=== PATIENT | male | born 1930 | race Caucasian/White ===

== ENCOUNTER 2018-04-09 14:03 | Emergency (ER) | payer MEDICARE, OTHER ==
--- NOTE | 2018-04-09 14:37 | EDM.PDOC ---
ED HPI GENERAL MEDICAL PROBLEM - General Chief Complaint: Head Injury Stated Complaint: FALL-RIGHT SIDE OF HEAD INJURY Time Seen by Provider: 04/09/18 14:31 Source of Information: Reports: Patient, Family (son and daughter in law. ) History Limitations: Reports: Altered Mental Status (Experiencing quite significant auditory and visual hallucinations.) - History of Present Illness INITIAL COMMENTS - FREE TEXT/NARRATIVE: 88-year-old male sent to the ED from the [place] [facility]. He is exhibiting auditory and visual hallucinations today apparently had a few days ago that he did the similar thing although he is much worse today. Patient has known organic brain disease but mild by history. Daughter and son-in-law are here to provide most of the history. He is very high functioning up until he fell 10 days ago and hit the right side of his head on the deck of his lawnmower. Therefore is concern of potential closed head injury with a subdural. Is been no nausea or vomiting. His balances never been the best but perhaps a little worse since the fall. He has not fallen again. Appetite is quite good. He does not drink much water however. His family believes that he is keeping up pretty well with the diet not losing weight. Onset: Gradual Onset Date: 03/30/18 (Fell 10 days ago and struck the right side of his head on the lawnmower deck. Symptoms seemed to gradually worsened since that time.) Duration: Day(s):, Intermittent, Waxing/Waning Location: Reports: Generalized (Auditory and visual hallucinations.) Quality: Reports: Other Severity: Moderate (As above) Improves with: Reports: None Worsens with: Reports: None Context: Denies: Activity, Exercise, Lifting, Sick Contact, Trauma, Other Associated Symptoms: Reports: Confusion, Other (Auditory and visual hallucinations.). 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 (see below) (None.) - Related Data Allergies Allergy/AdvReac Type Severity Reaction Status Date / Time aspirin Allergy Other Verified 04/09/18 14:26 simvastatin Allergy Other Verified 04/09/18 14:26 Home Meds: Home Meds Acetaminophen 500 mg PO QID PRN 04/09/18 [History] Cholecalciferol (Vitamin D3) [Vitamin D3] 1,000 unit PO DAILY 04/09/18 [History] Alvarom/Geovanni/ Bt-Org Peel/Gr T [Apple Cider Vinegar Plus TB] 1 tab PO DAILY [History] Cinnamon [Cinnamon Oil] 0 unit PO DAILY 04/09/18 [History] Famotidine 20 mg PO BEDTIME 04/09/18 [History] HCTZ/Triamterene [Dyazide 25-37.5 MG] 0.5 tab PO DAILY 04/09/18 [History] Hydrocortisone [Hydrocortisone 2.5% Crm] 1 applic TOP BID 04/09/18 [History] Lisinopril 10 mg PO BID 04/09/18 [History] Withee-3/DHA/Epa/Fish Oil [Fish Oil 1,000 mg Softgel] 1,000 mg PO DAILY 04/09/18 [History] Psyllium [Metamucil SF] 1 tsp PO BID 04/09/18 [History] Rivastigmine Tartrate [Rivastigmine] 1.5 mg PO BID #28 capsule 04/09/18 [Rx] Vit A & D3 In Cod Liver Oil [Cod Liver Oil Softgel] 1 cap PO DAILY 04/09/18 [ History] Social & Family History - Living Situation & Occupation Living situation: Reports: Occupation: Retired ED ROS GENERAL - Review of Systems Review Of Systems: See Below Constitutional: Denies: Fever, Chills, Malaise, Weakness, Decreased Appetite, Weight Loss HEENT: Reports: Glasses, Hearing Loss (Wears hearing aids in both ears.) Respiratory: Reports: No Symptoms Cardiovascular: Reports: No Symptoms Endocrine: Reports: No Symptoms GI/Abdominal: Reports: No Symptoms : Reports: Frequency, Other (BPH.) Musculoskeletal: Reports: Joint Pain (Right knee. Has rotator cuff disease in both shoulders.) Skin: Reports: No Symptoms Neurological: Reports: Confusion, Other (Exhibiting auditory and visual hallucinations). Denies: Headache ( according to family members. Patient is aware that the things that he see a real but they aren't real to him at the time and are quite scary.), Numbness, Paresthesia, Seizure, Syncope, Tingling, Tremors, Trouble Speaking, Difficulty Walking, Weakness, Change in Speech Psychiatric: Reports: No Symptoms, Hallucinations (Both visual and auditory hallucinations), Other Hematologic/Lymphatic: Reports: No Symptoms Immunologic: Reports: No Symptoms ED EXAM, HEAD INJURY - Physical Exam Exam: See Below Exam Limited By: No Limitations General Appearance: Alert, WD/WN, No Apparent Distress Head: Atraumatic, Normocephalic. No: Scalp Abrasions, Scalp Ecchymosis, Scalp Hematoma, Scalp Tenderness, Active Bleeding, Elliott's Sign, Facial Abrasions, Facial Ecchymosis, Facial Lacerations Nexus Criteria: No: Posterior, Midline Cervical Tenderness, Evidence of Intoxication, Altered Level of Consciousness, Focal Neurological Deficit, Painful Distraction Injuries Eyes: Bilateral Eye: PERRL Nose: Normal Inspection Throat/Mouth: Normal Inspection, Normal Lips, Normal Oropharynx, Normal Voice. No: Dental Trauma Neck: Non-Tender, Normal Alignment, Normal Inspection, Other (Limited extension of the cervical spine but otherwise full range of motion.) Respiratory: No Respiratory Distress, Lungs Clear, Normal Breath Sounds, No Accessory Muscle Use, Chest Non-Tender Cardiovascular: Normal Peripheral Pulses, Regular Rate, Rhythm, No Edema, No Gallop, No Rub GI/Abdominal Exam: Normal Bowel Sounds, Soft, Non-Tender, No Organomegaly, No Abnormal Bruit, No Mass, Pelvis Stable Back Exam: Normal Inspection, Full Range of Motion. No: CVA Tenderness (L), CVA Tenderness (R) Extremities: No Pedal Edema, Pedal Edema (1-2+ pitting edema bilaterally.), Other Neurologic: No Motor/Sensory Deficits, Alert, Oriented x 3 Skin: Normal Color, Warm/Dry - [place] Coma Score Best Eye Response (Ronda): (4) Open Spontaneously Best Verbal Response (Ronda): (5) Oriented Best Motor Response ([place]): (6) Obeys Commands Ronda Total: 15 EKG INTERPRETATION EKG Date: 04/09/18 Time: 14:42 Rhythm: Other (Sinus arrhythmia with a rate of 56-75/m.) Rate (Beats/Min): 66 (Occasional PVCs.) [place]: Normal P-Wave: Present QRS: Normal ST-T: Other (Diffuse early repolarization pattern) QT: Prolonged (QT mildly prolonged.) EKG Interpretation Comments: Borderline ECG Course - Vital Signs Last Recorded V/S: Last Vital Signs Temp 36.3 C 04/09/18 14:13 Pulse 64 04/09/18 14:13 Resp 18 04/09/18 14:13 BP 189/68 H 04/09/18 14:13 Pulse Ox 98 04/09/18 14:13 - Orders/Labs/Meds Orders: Active Orders 24 hr Category Date Time Status EKG Documentation Completion [RC] STAT Care 04/09/18 14:32 Active Head wo Cont [CT] Stat Exams 04/09/18 14:35 Taken OSMOLALITY,SERUM [CHEM] Stat Lab 04/09/18 15:05 Results SEDIMENTATION RATE AUTO [HEME] Stat Lab 04/09/18 15:05 Received TSH [CHEM] Stat Lab 04/09/18 15:05 Results Labs: Laboratory Tests 04/09/18 04/09/18 04/09/18 Range/Units 15:05 15:05 15:05 WBC 9.99 H (4.23-9.07) K/mm3 RBC 5.02 (4.63-6.08) M/mm3 Hgb 15.4 (13.7-17.5) gm/L Hct 46.6 (40.1-51.0) % MCV 92.8 H (79.0-92.2) fl MCH 30.7 (25.7-32.2) pg MCHC 33.0 (32.2-35.5) g/dl RDW Std Deviation 42.9 (35.1-43.9) fL Plt Count 295 (163-337) K/mm3 MPV 9.6 (9.4-12.3) fl Neutrophils % (Manual) 58 (40-60) % Band Neutrophils % 0 (0-10) % Lymphocytes % (Manual) 33 (20-40) % Atypical Lymphs % 0 % Monocytes % (Manual) 9 (2-10) % Eosinophils % (Manual) 0 L (0.8-7.0) % Basophils % (Manual) 0 L (0.2-1.2) Platelet Estimate Adequate RBC Morph Comment Normal Sodium 142 (136-145) mEq/L Potassium 4.1 (3.5-5.1) mEq/L Chloride 105 (98-107) mEq/L Carbon Dioxide 29 (21-32) mEq/L Anion Gap 12.1 (5-15) BUN 11 (7-18) mg/dL Creatinine 1.0 (0.7-1.3) mg/dL Est Cr Clr Drug Dosing 54.97 mL/min Estimated GFR (MDRD) > 60 (>60) mL/min BUN/Creatinine Ratio 11.0 L (14-18) Glucose 100 (83-115) mg/dL Calcium 9.9 (8.5-10.1) mg/dL Magnesium 1.9 (1.8-2.4) mg/dl Total Bilirubin 0.5 (0.2-1.0) mg/dL AST 19 (15-37) U/L ALT 19 (16-63) U/L Alkaline Phosphatase 97 (46-116) U/L C-Reactive Protein 0.2 (<1.0) mg/dL NT-Pro-B Natriuret Pep 150 (0-450) pg/mL Total Protein 7.4 (6.4-8.2) g/dl Albumin 3.4 (3.4-5.0) g/dl Globulin 4.0 gm/dL Albumin/Globulin Ratio 0.9 L (1-2) TSH 3rd Generation (0.358-3.74) uIU/mL 04/09/18 Range/Units 15:05 WBC (4.23-9.07) K/mm3 RBC (4.63-6.08) M/mm3 Hgb (13.7-17.5) gm/L Hct (40.1-51.0) % MCV (79.0-92.2) fl MCH (25.7-32.2) pg MCHC (32.2-35.5) g/dl RDW Std Deviation (35.1-43.9) fL Plt Count (163-337) K/mm3 MPV (9.4-12.3) fl Neutrophils % (Manual) (40-60) % Band Neutrophils % (0-10) % Lymphocytes % (Manual) (20-40) % Atypical Lymphs % % Monocytes % (Manual) (2-10) % Eosinophils % (Manual) (0.8-7.0) % Basophils % (Manual) (0.2-1.2) Platelet Estimate RBC Morph Comment Sodium (136-145) mEq/L Potassium (3.5-5.1) mEq/L Chloride (98-107) mEq/L Carbon Dioxide (21-32) mEq/L Anion Gap (5-15) BUN (7-18) mg/dL Creatinine (0.7-1.3) mg/dL Est Cr Clr Drug Dosing mL/min Estimated GFR (MDRD) (>60) mL/min BUN/Creatinine Ratio (14-18) Glucose (83-115) mg/dL Calcium (8.5-10.1) mg/dL Magnesium (1.8-2.4) mg/dl Total Bilirubin (0.2-1.0) mg/dL AST (15-37) U/L ALT (16-63) U/L Alkaline Phosphatase (46-116) U/L C-Reactive Protein (<1.0) mg/dL NT-Pro-B Natriuret Pep (0-450) pg/mL Total Protein (6.4-8.2) g/dl Albumin (3.4-5.0) g/dl Globulin gm/dL Albumin/Globulin Ratio (1-2) TSH 3rd Generation 3.102 (0.358-3.74) uIU/mL - Radiology Interpretation Free Text/Narrative:: 88-year-old male presents to the ED for evaluation of auditory and visual hallucinations that seem to started within the last 10 days. This was predated by a fall with striking of the right side of his head on the deck of his lawnmower 10 days ago. He has no other signs or symptoms of neurological disease. He had some signs of early dementia prior to his fall and no past history of auditory or visual hallucinations up until this injury. No changes in his medications recently. Examination reveals normal heart and lungs. He does not appear to be ill. No fever. Plan CT head to be done to rule out a subdural hematoma. Routine labs to be collected including a TSH. - Re-Assessments/Exams Free Text/Narrative Re-Assessment/Exam: 04/09/18 15:29 CT of the brain reveals age-appropriate changes with diffuse small vessel ischemic changes in both basal ganglia. There are also scattered areas of hypoattenuation of the super tentorial white matter most likely secondary to microvascular ischemic changes. No recurrent or infarcts are evident. No subdural or intracerebral mass effect identified. No fractures of the skull identified. I have reviewed his medication list and there is no medications that should interfere significantly with any brain function. Particular he is on no antidepressants or antipsychotics. No anticholinergics. Family does not believe he takes any [id number] medications. 04/09/18 16:04 Labs are back. White count is normal at 9.99. Differential is 58 % neutrophils with no bands. Hemoglobin is 15.4 and hematocrit of 46.6. Is normal at 295,000. Sodium is 142 with potassium of 4.1. Chloride is 105 bicarbonate 29. Anion gap is normal at 12.1. BUN is 11 with a creatinine of 1.0. GFR is greater than 60. Glucose is 100. Calcium is 9.9 with a magnesium of 1.9. Bilirubin is normal at 0.5 remainder the liver function studies are normal. C-reactive protein is less than 0.2 BNP is 150. TSH is normal at 3.102. Entered into a discussion with his family members so that they are aware that there are no metabolic abnormalities to account for his acute change in cognitive function. I've asked them to go back to the [place] [facility] and have them organize a neurological consult. In the meantime we will start him on rivastigmine 1.5 mg bid and an effort to try and bring his visual hallucinations and delusional behavior under control. This dosage can be increased every 2 weeks depending on tolerability up to a total of 6 mg twice daily. This be better followed and managed by neurological services. 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 behavioral disturbance Dementia, presenile with delusions Qualifiers: Dementia behavioral disturbance: without behavioral disturbance Qualified Code( s): F03.90 - Unspecified dementia without behavioral disturbance - Discharge Information *PRESCRIPTION DRUG MONITORING PROGRAM REVIEWED*: Not Applicable *COPY OF PRESCRIPTION DRUG MONITORING REPORT IN PATIENT DEO: Not Applicable Prescriptions: Rivastigmine Tartrate [Rivastigmine] 1.5 mg PO BID #28 capsule Referrals: Sonja Corrales DO [Primary Care Provider] - Forms: ED Department Discharge Additional Instructions: Evaluation in the emergency him today in regards to development of significant delusional behaviors in terms of false fixed beliefs. This is associated with visual hallucinations and perhaps auditory hallucinations reportedly seeing things that aren't there including people etc. A complete metabolic workup was carried out in the emergency department today and also a head CT scan as of recent fall 10 days ago injuring the right side of your head. CT scan reveals age-appropriate degenerative changes and evidence of an aging brain. Suggest starting a medication called Rivastigmine 1.5 mg twice daily with food for the next 2 weeks and see if the hallucinations and delusional behavior does not go away. If not the medication could be increased after 2 weeks to 3 mg twice daily and every 2 weeks the dosage can be gradually increased to a total of 6 mg twice daily. Suggest seeking neurological evaluation and consultation through the [place] [facility]. - My Orders Last 24 Hours: My Active Orders 04/09/18 14:32 EKG Documentation Completion [RC] STAT 04/09/18 14:35 Head wo Cont [CT] Stat 04/09/18 15:05 OSMOLALITY,SERUM [CHEM] Stat SEDIMENTATION RATE AUTO [HEME] Stat TSH [CHEM] Stat - Assessment/Plan Last 24 Hours: My Active Orders 04/09/18 14:32 EKG Documentation Completion [RC] STAT 04/09/18 14:35 Head wo Cont [CT] Stat 04/09/18 15:05 OSMOLALITY,SERUM [CHEM] Stat SEDIMENTATION RATE AUTO [HEME] Stat TSH [CHEM] Stat
--- NOTE | 2018-04-11 08:08 | CT ---
Head CT Technique: Multiple axial sections through the brain were obtained. Intravenous contrast was not utilized. Comparison: No prior intracranial imaging. Findings: Ventricles along with basal cisterns and sulci over the convexities are moderately prominent. Diminished density is noted within the periventricular and subcortical white matter which is compatible with small vessel ischemic demyelination change. 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 No other abnormal parenchymal densities are seen. No evidence of intracranial hemorrhage. No midline shift or mass effect is seen. Atherosclerotic calcification noted within the vertebral vessels and within the carotid siphon. Bone window settings were reviewed which show no acute calvarial abnormality. Impression: 1. Senescent change as noted above. 2. No acute intracranial abnormality is identified. Diagnostic code #2 I agree with preliminary report issued by [facility] ([facility] preliminary report dictated on 04/09/18, 4:38 PM Central Time)
== END 2018-04-09 16:30 | disposition home or self-care (01) ==
LOC: JD.ED 14:03
DX: F03.90 Unspecified dementia, unspecified severity, without behavioral disturbance, psychotic disturbance, mood disturbance, and anxiety (principal); Z88.8 Allergy status to other drugs, medicaments and biological substances; Z79.899 Other long term (current) drug therapy
CPT/HCPCS: 36415; 70450; 70450-26; 80053; 83735; 83880; 83930; 84443; 85007; 85027; 85652; 86140; 93005; 93010; 99284-25; 99285-25

== ENCOUNTER 2018-11-28 11:52 | Emergency (ER) | payer MEDICARE, OTHER ==
[2018-11-28] MEDS ORDERED: Sodium Chloride 0.9% 10 ML Syringe FLUSH PRN (12:00)
[2018-11-28] MEDS ORDERED: Sodium Chloride 0.9% 1,000 ML IV ONE ×2 (12:03→13:36)
[2018-11-28] MEDS ORDERED: Ondansetron 4 MG/2 ML SDV IVPUSH ONE (13:01)
--- NOTE | 2018-11-28 15:11 | EDM.PDOC ---
ED HPI GENERAL MEDICAL PROBLEM - General Chief Complaint: Neurological Problem Stated Complaint: [facility] Time Seen by Provider: 11/28/18 12:00 Source of Information: Reports: Patient, EMS, Penitentiary Records History Limitations: Reports: Altered Mental Status - History of Present Illness INITIAL COMMENTS - FREE TEXT/NARRATIVE: The patient presents by [facility] from the half-way. He had low blood pressure and he has some twitching of his eye. He has no fever, cough, chest pain, shortness of breath, abdominal pain, nausea or vomiting. He has no dysuria. He has a history of dementia and he has been at the half-way for a few weeks. He speaks really soft and is hard to understand. He has no numbness or weakness on either side. His oxygen saturations were low at times. Onset: Sudden Duration: Hour(s): Severity: Moderate Improves with: Reports: None Worsens with: Reports: None Associated Symptoms: Reports: No Other Symptoms - Related Data Allergies Allergy/AdvReac Type Severity Reaction Status Date / Time aspirin Allergy Other Verified 11/28/18 12:05 simvastatin Allergy Other Verified 11/28/18 12:05 Home Meds: Home Meds Cholecalciferol (Vitamin D3) [Vitamin D3] 1,000 unit PO DAILY 04/09/18 [History] Cinnamon [Cinnamon Oil] 0 unit PO DAILY 04/09/18 [History] Famotidine 20 mg PO BEDTIME 04/09/18 [History] Lisinopril 10 mg PO BID 04/09/18 [History] [place]-3/DHA/Epa/Fish Oil [Fish Oil 1,000 mg Softgel] 1,000 mg PO DAILY 04/09/18 [History] Vit A & D3 In Cod Liver Oil [Cod Liver Oil Softgel] 1 cap PO BID 04/09/18 [ History] Aspirin [Halfprin] 81 mg PO DAILY 11/28/18 [History] Bisacodyl 10 mg PO DAILY 11/28/18 [History] Cider Vinegar [Apple Cider Vinegar] 900 mg PO BID 11/28/18 [History] Donepezil HCl 10 mg PO BEDTIME 11/28/18 [History] OLANZapine [Olanzapine] 5 mg PO BID 11/28/18 [History] Past Medical History HEENT History: Reports: Cataract, Hard of Hearing, Impaired Vision Other HEENT History: wears eyeglasses, bilateral hearing aides. Cardiovascular History: Reports: High Cholesterol, Hypertension Other Cardiovascular History: mixed hyperlipidemia. Gastrointestinal History: Reports: GERD, Hiatal Hernia, Other (See Below) Other Gastrointestinal History: dyspepsia. Other Genitourinary History: benign hypertrophy of prostate. Musculoskeletal History: Reports: Fracture Endocrine/Metabolic History: Reports: Vitamin D Deficiency - Infectious Disease History Infectious Disease History: Reports: Chicken Pox, Mumps - Past Surgical History HEENT Surgical History: Reports: Cataract Surgery Musculoskeletal Surgical History: Reports: Other (See Below) Other Musculoskeletal Surgeries/Procedures:: plate to L) ankle. Social & Family History - Tobacco Use Smoking Status *Q: Never Smoker Second Hand Smoke Exposure: No - Caffeine Use Caffeine Use: Reports: None, Coffee - Recreational Drug Use Recreational Drug Use: No - Living Situation & Occupation Living situation: Reports: Occupation: Retired ED ROS GENERAL - Review of Systems Review Of Systems: See Below Constitutional: Reports: No Symptoms HEENT: Reports: No Symptoms Respiratory: Reports: No Symptoms Cardiovascular: Reports: Other (Low blood pressure). Denies: Chest Pain Endocrine: Reports: No Symptoms GI/Abdominal: Reports: No Symptoms : Reports: No Symptoms - Physical Exam Exam: See Below Exam Limited By: Altered Mental Status (slightly confused) General Appearance: Alert, No Apparent Distress Ears: Normal External Exam Nose: Normal Inspection Head Exam: Atraumatic, Normocephalic Neck: Normal Inspection, Supple, Non-Tender Respiratory/Chest: No Respiratory Distress, Lungs Clear, Normal Breath Sounds Cardiovascular: Regular Rate, Rhythm, No Edema, No Murmur GI/Abdominal: Soft, Non-Tender, No Organomegaly, No Mass Neuro Exam (Abbreviated): Alert, Oriented, No Motor/Sensory Deficits EKG INTERPRETATION EKG Date: 11/28/18 Time: 12:37 Rhythm: NSR Rate (Beats/Min): 99 [place]: Normal P-Wave: Present QRS: Normal ST-T: Normal SD/PQ Interval: 1st degree HB EKG Interpretation Comments: Multifocal PVCs Course - Vital Signs Last Recorded V/S: Last Vital Signs Temp 96.7 F 11/28/18 12:05 Pulse 110 H 11/28/18 12:05 Resp 27 H 11/28/18 12:05 BP 57/45 L 11/28/18 12:05 Pulse Ox 91 L 11/28/18 12:05 - Orders/Labs/Meds Orders: Active Orders 24 hr Category Date Time Status Cardiac Monitoring [RC] . DIRECTED Care 11/28/18 12:00 Active EKG Documentation Completion [RC] STAT Care 11/28/18 12:02 Active Oxygen Therapy [RC] PRN Care 11/28/18 12:01 Active Peripheral IV Care [RC] . DIRECTED Care 11/28/18 12:02 Active Chest 1V Frontal [CR] Stat Exams 11/28/18 12:02 Taken Head wo Cont [CT] Stat Exams 11/28/18 12:02 Taken Sodium Chloride 0.9% [Saline Flush] Med 11/28/18 12:00 Active 10 ml FLUSH ASDIRECTED PRN Peripheral IV Insertion Adult [OM.PC] Stat Oth 11/28/18 12:00 Ordered Medication Orders Sodium Chloride (Saline Flush) 10 ml FLUSH ASDIRECTED PRN PRN Reason: Keep Vein Open Last Admin: 11/28/18 12:31 Dose: 10 ml Labs: Laboratory Tests 11/28/18 11/28/18 11/28/18 Range/Units 12:03 12:49 13:49 Puncture Site Rt radial ABG pH 7.37 (7.35-7.45) ABG pCO2 37.9 (35.0-45.0) mmHg ABG pO2 268.0 H* (80.0-100.0) mmHg ABG HCO3 21.2 L (22.0-26.0) meq/L ABG O2 Saturation 100.0 H (96.0-97.0) % ABG Base Excess -3.1 L (-2-2.0) A-a Gradient 4 mmHg O2 Delivery Device Simple mask Oxygen Flow Rate 9.0 FiO2 50.00 (21.00-100.00) % POC Glucose 165 H (83-110) mg/dL Urine Color Yellow (Yellow) Urine Appearance Clear (Clear) Urine pH 6.5 (5.0-8.0) Ur Specific [place] 1.020 (1.005-1.030) Urine Protein 1+ H (Negative) Urine Glucose (UA) Negative (Negative) Urine Ketones Negative (Negative) Urine Occult Blood Negative (Negative) Urine Nitrite Negative (Negative) Urine Bilirubin Negative (Negative) Urine Urobilinogen 2.0 H (0.2-1.0) Ur Leukocyte Esterase Negative (Negative) Urine RBC 0-5 (0-5) /hpf Urine WBC 0-5 (0-5) /hpf Ur Epithelial Cells 0-5 (0-5) /hpf Urine Bacteria Few H (FEW) /hpf Urine Mucus Rare (FEW) /hpf Meds: Medications Generic Name Dose Route Start Last Admin Trade Name Alyce PRN Reason Stop Dose Admin Sodium Chloride 10 ml 11/28/18 12:00 11/28/18 12:31 Saline Flush FLUSH 10 ml ASDIRECTED PRN Administration Keep Vein Open Discontinued Medications Generic Name Dose Route Start Last Admin Trade Name Freq PRN Reason Stop Dose Admin Sodium Chloride 1,000 mls @ 1,000 mls/hr 11/28/18 12:03 11/28/18 12:31 Normal Saline IV 11/28/18 13:02 1,000 mls/hr ONETIME ONE Administration Sodium Chloride 1,000 mls @ 1,000 mls/hr 11/28/18 13:36 11/28/18 13:49 Normal Saline IV 11/28/18 14:35 1,000 mls/hr ONETIME ONE Administration Ondansetron HCl 4 mg 11/28/18 13:01 11/28/18 13:11 Zofran IVPUSH 11/28/18 13:02 4 mg ONETIME ONE Administration - Re-Assessments/Exams Free Text/Narrative Re-Assessment/Exam: 11/28/18 15:12 I ordered an IV NS 1L bolus, EKG, CT of his head, labs, UA and blood cultures. His temp was low so we gave him warm blankets to help get his temp up. His CXR shows no pneumonia. His EKG shows a NSR with a 1st degree HB and multifocal PVCs. 11/28/18 15:15 His blood sugar was 165. His UA shows no UTI. My staff tried multiple times to get blood but they were unsuccessful. I gave him another liter of fluid and his BP responded to that liter. His family does not want us to draw anymore blood. The patient did not want that done either. He is feeling better and would like to go home. It sounds like he wants comfort care at this time. 11/28/18 15:18 I did explain to the patient and family it would be hard to rule out if the patient had an WI or low blood counts without blood and they understood and still would not like us to draw labs. Departure - Departure Time of Disposition: 15:20 Disposition: DC/[facility] to [facility] Condition: Fair Clinical Impression: Generalized weakness Hypotension Qualifiers: Hypotension type: other hypotension type Qualified Code(s): I95.89 - Other hypotension - Discharge Information *PRESCRIPTION DRUG MONITORING PROGRAM REVIEWED*: Not Applicable *COPY OF PRESCRIPTION DRUG MONITORING REPORT IN PATIENT DEO: Not Applicable Referrals: PCP,None [Primary Care Provider] - Forms: ED Department Discharge Additional Instructions: Continue your medications as prescribed. Try to increase your fluid intake and try to eat. Please return if you are worse. - My Orders Last 24 Hours: My Active Orders 11/28/18 12:00 Cardiac Monitoring [RC] . DIRECTED Sodium Chloride 0.9% [Saline Flush] 10 ml FLUSH ASDIRECTED PRN Peripheral IV Insertion Adult [OM.PC] Stat 11/28/18 12:01 Oxygen Therapy [RC] PRN 11/28/18 12:02 EKG Documentation Completion [RC] STAT Peripheral IV Care [RC] . DIRECTED Chest 1V Frontal [CR] Stat Head wo Cont [CT] Stat - Assessment/Plan Last 24 Hours: My Active Orders 11/28/18 12:00 Cardiac Monitoring [RC] . DIRECTED Sodium Chloride 0.9% [Saline Flush] 10 ml FLUSH ASDIRECTED PRN Peripheral IV Insertion Adult [OM.PC] Stat 11/28/18 12:01 Oxygen Therapy [RC] PRN 11/28/18 12:02 EKG Documentation Completion [RC] STAT Peripheral IV Care [RC] . DIRECTED Chest 1V Frontal [CR] Stat Head wo Cont [CT] Stat
--- NOTE | 2018-11-29 14:23 | CT ---
Head CT Technique: Multiple axial sections through the brain were obtained. Intravenous contrast was not utilized. Comparison: Prior head CT study of 04/09/18. Findings: Ventricles along with basal cisterns and sulci over the convexities are moderately prominent. Diminished density noted within the periventricular and subcortical white matter compatible with small vessel ischemic demyelination change. 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 No other abnormal parenchymal densities are appreciated. No evidence of intracranial hemorrhage. No midline shift or mass effect is seen. Slight atherosclerotic calcification is seen within the vertebral vessels and within the carotid siphon. Bone window settings were reviewed which show the visualized sinuses to appear clear. No acute calvarial abnormality is seen. Impression: 1. Senescent change as noted above. Old infarcts. 2. Nothing acute is appreciated on noncontrast head CT exam. Diagnostic code #2 I agree with preliminary report issued by [facility] ([facility] report finalized on 11/28/18, 2:11 PM Central Time.
--- NOTE | 2018-11-29 14:31 | CR ---
Chest: Vertebral view of the chest was obtained. Comparison: No prior chest x-ray. Heart size and mediastinum are normal. Lungs are clear. Bony structures show slight scoliosis within the spine with mild degenerative change. Impression: 1. Nothing acute is seen on portable chest x-ray. Diagnostic code #2
== END 2018-11-28 15:46 ==
LOC: JD.ED 11:52
DX: I95.89 Other hypotension (principal); R53.1 Weakness; E78.00 Pure hypercholesterolemia, unspecified; I10 Essential (primary) hypertension; E78.2 Mixed hyperlipidemia; K21.9 Gastro-esophageal reflux disease without esophagitis; Z79.899 Other long term (current) drug therapy
CPT/HCPCS: 36600; 70450; 71045; 81001; 82803; 82962; 93005; 96361; 96374; 99285; J2405; J7040; 93010; 99283